=== PATIENT | female | born 1985 | race Caucasian/White ===

== ENCOUNTER 2018-06-24 17:26 | Emergency (ER) | payer BC, OTHER ==
[2018-06-24] MEDS ORDERED: Pantoprazole IV* 40 MG IV ONE (18:31)
--- NOTE | 2018-06-24 18:38 | ED ---
GI/ HPI - HPI Summary HPI Summary: 32 year old female presents with epigastric pain for the past couple days. She states it feels like a burning sensation. It is located in the center of her abd and radiates to the back. She denies any chest pressures or shortness of breath. No palpitations. No cough. No recent illness. She admits to nausea but no vomiting. She says worse with food. She states that is is better when she is sitting forward. No diarrhea or constipation. No blood in her stool or dark tarry stool. No urinary symptoms. no abnormal vaginal discharge. Never had this before. Denies any previous abd surgeries. Has no medical conditions. - History of Current Complaint Chief Complaint: EDAbdPain Time Seen by Provider: 06/24/18 18:25 Stated Complaint: HEARTBURN X3 DAYS Pain Intensity: 6 - Allergy/Home Medications Allergies/Adverse Reactions: Allergies Allergy/AdvReac Type Severity Reaction Status Date / Time clarithromycin [From Biaxin] Allergy Hives Verified 06/24/18 17:32 Home Medications: Home Medications Eth Estradiol/Drospirenone(NF) [Gianvi (NF)] 1 tab PO DAILY 06/24/18 [History Confirmed 06/24/18] PMH/Surg Hx/FS Hx/Imm Hx Endocrine/Hematology History: Denies: Hx Anticoagulant Therapy Cardiovascular History: Denies: Hx Myocardial Infarction Infectious Disease History: No Infectious Disease History: Denies: Traveled Outside the [place] in Last 30 Days - Family History Known Family History: Positive: Non-Contributory - Social History Alcohol Use: None Substance Use Type: Reports: None Smoking Status (MU): Never Smoked Tobacco Review of Systems Negative: Fever Negative: Chest Pain Negative: Shortness Of Breath Positive: Abdominal Pain, Nausea. Negative: Vomiting, Diarrhea All Other Systems Reviewed And Are Negative: Yes Physical Exam Triage Information Reviewed: Yes Vital Signs On Initial Exam: Initial Vitals Temp Pulse Resp BP Pulse Ox 98.7 F 83 20 133/88 100 06/24/18 17:29 06/24/18 17:29 06/24/18 17:29 06/24/18 17:29 06/24/18 17:29 Vital Signs Reviewed: Yes Appearance: Positive: Well-Appearing Skin: Positive: Warm, Dry Head/Face: Positive: Normal Head/Face Inspection Eyes: Positive: Normal, Conjunctiva Clear ENT: Positive: Pharynx normal Respiratory/Lung Sounds: Positive: Clear to Auscultation, Breath Sounds Present Cardiovascular: Positive: Normal, RRR Abdomen Description: Positive: Soft, Other: - tenderness epigastric. Negative: CVA Tenderness (R), CVA Tenderness (L) Bowel Sounds: Positive: Present Musculoskeletal: Positive: Normal Neurological: Positive: Normal Psychiatric: Positive: Normal AVPU Assessment: Alert Diagnostics - Vital Signs Vital Signs Temp Pulse Resp BP Pulse Ox 06/24/18 17:29 98.7 F 83 20 133/88 100 - Laboratory Result Diagrams: 06/24/18 18:50 06/24/18 18:50 Lab Statement: Any lab studies that have been ordered have been reviewed, and results considered in the medical decision making process. - Ultrasound No standard instances Ultrasound Interpretation Completed By: Radiologist Summary of Ultrasound Findings: IMPRESSION: Cholelithiasis without cholecystitis. Re-Evaluation - Re-Evaluation First Eval Re-Evaluation Time: 19:31 Change: Unchanged Comment: no change with protonix Second Eval Re-Evaluation Time: 20:56 Change: Improved Comment: pain improved Third Eval Re-Evaluation Time: 21:29 Change: Improved Comment: pain resolved GIGU Course/Dx - Course Course Of Treatment: 32 year old female presents with epigastric pain for the past couple days. She states it feels like a burning sensation. It is located in the center of her abd and radiates to the back. She denies any chest pressures or shortness of breath. No palpitations. No cough. No recent illness. She admits to nausea but no vomiting. She says worse with food. She states that is is better when she is sitting forward. did not eat anything different. no one else is sick. No diarrhea or constipation. No blood in her stool or dark tarry stool. No urinary symptoms. no abnormal vaginal discharge. Never had this before. Denies any previous abd surgeries. Has no medical conditions. on exam tenderness epigastric. neg velazquez. wbc normal. crp normal. d-dimer normal. lfts normal. gave protonix with no improvement. gave morphine and zofran and sx resolved. gallbaldder u/s shows cholelithasis without cholecystitis. as is pain free now and no elevated wbc count or lft will send home to follow up with surgery. gave pain and nausea medication. patient understand and agrees with plan. - Diagnoses Differential Diagnoses - Female: Gall Bladder Disease, Gastritis, Urinary Tract Infection Provider Diagnoses: Cholelithiasis Discharge - Sign-Out/Discharge Documenting (check all that apply): Patient Departure - Discharge Plan Condition: Good Disposition: HOME Prescriptions: Ondansetron TAB* [Zofran 4 MG Tab*] 4 mg PO Q6H PRN #16 tab PRN Reason: Nausea oxyCODONE/Acetamin 5/325 MG* [Percocet 5/325 TAB*] 1 tab PO Q6H PRN #16 tab MDD 4 PRN Reason: Pain Patient Education Materials: Gallstones (ED) Referrals: Filippo Persaud MD [Primary Care Provider] - Terence Estrada MD [Medical Doctor] - Additional Instructions: Take Tylenol or ibuprofen every 6 hours as needed for pain, take Percocet every 6 hours for break through pain as needed Take Zofran every 6 hours as needed for nausea Avoid fatty foods Follow up with surgery Return to ED if develop fever, persistent vomiting, or any new or worsening symptoms - Billing Disposition and Condition Condition: GOOD Disposition: Home
[2018-06-24 19:01] LABS: ABS Basophils 0 10^3/ul (0-0.2); ABS Eosinophils 0.1 10^3/ul (0-0.6); ABS Lymphocytes 3.1 10^3/ul (1.0-4.8); ABS Monocytes 0.5 10^3/ul (0-0.8); ABS Neutrophils 4.5 10^3/ul (1.5-7.7); ABS Nucleated RBC 0 10^3/ul; Hematocrit 39 % (35-47); Hemoglobin 13.2 g/dl (12.0-16.0); Lymphocyte % 38.1 %; Mean Corpuscular HGB Conc 34 g/dl (31-36); Mean Corpuscular Hemoglobin 30 pg (27-31); Mean Corpuscular Volume 88 fL (80-97); Mean Platelet Volume 7.7 fL (7.4-10.4); Nucleated Red Blood Cells % 0; Platelet Count 257 10^3/ul (150-450); Red Blood Count 4.44 10^6/ul (4.00-5.40); Red Cell Distribution Width 13 % (10.5-15); White Blood Count 8.1 10^3/ul (3.5-10.8)
[2018-06-24 19:19] LABS: ALT 16 U/L (7-52); AST 16 U/L (13-39); Albumin 3.9 g/dL (3.2-5.2); Albumin/Globulin Ratio 1.2 (1-3); Alkaline Phosphatase 38 U/L (34-104); Anion Gap 7 mmol/L (2-11); Blood Urea Nitrogen 17 mg/dL (6-24); C Reactive Protein 2.94 mg/L (<8.01); CO2 Carbon Dioxide 27 mmol/L (22-32); Calcium 8.9 mg/dL (8.6-10.3); Chloride 103 mmol/L (101-111); Globulin 3.2 g/dL (2-4); Glucose 116 mg/dL (70-100); Potassium 3.8 mmol/L (3.5-5.0); Sodium 137 mmol/L (135-145); Total Protein 7.1 g/dL (6.4-8.9)
[2018-06-24 19:25] LABS: HCG Pregnancy < 0.60 mIU/mL
[2018-06-24] MEDS ORDERED: Morphine VIAL* 4 MG/ML VIAL (1 ml vial) IV ONE ×2 (19:31→20:55)
[2018-06-24] MEDS ORDERED: Ondansetron INJ* 2 MG/ML VIAL IV ONE (19:40)
[2018-06-24 20:59] LABS: Urine Appearance Clear; Urine Bilirubin Negative (Negative); Urine Blood Negative (Negative); Urine Color Yellow; Urine Glucose Negative (Negative); Urine Ketones Trace (Negative); Urine Nitrite Negative (Negative); Urine Protein Negative (Negative); Urine Urobilinogen Negative (Negative)
[2018-06-24 21:42] VITALS: BP 138/79
== END 2018-06-24 21:43 | disposition home or self-care (01) ==
LOC: ED 17:26
DX: K80.20 Calculus of gallbladder without cholecystitis without obstruction (principal); R10.13 Epigastric pain
CPT/HCPCS: 36415; 76705; 80053; 81003; 83690; 84702; 85025; 85379; 86140; 96374; 96375; 99283; J2270; J2405

== ENCOUNTER 2018-07-11 13:12 | Day surgery (SDC) | payer BC, OTHER ==
[~2018-07-11 13:12] MED LIST: Buffered Lidocaine 1% SYRIN* 1 ML/SYRINGE INTRADERM ONE; Dexamethasone TAB* 4 MG PO ONE; DiMENhydriNATE IV* 50 MG/ML VIAL IV PUSH PRN; Famotidine IV* 10 MG/ML 2 ML (20 mg) IV ONE; Lactated Ringers 1000 ML Bag* 1,000 ML IV SCH; Morphine VIAL* 4 MG/ML VIAL (1 ml vial) IV PRN; Naloxone* 0.4 MG/ML 1 ML VIAL IV PRN; Ondansetron INJ* 2 MG/ML VIAL ONE; PROCHLORPERAZINE INJ 5 MG/ML 2 ML VIAL IV PRN; Scopolamine 1.5 mg* PATCH TRANSDERM PRN; fentaNYL* 50 MCG/ML 2 ML VIAL (100 MCG VIAL) IV PRN; oxyCODONE/Acetamin 5/325 MG* TAB PO PRN
[2018-07-11] MEDS ORDERED: Atracurium* 10 MG/ML 10 ML VIAL ONE (13:20)
[2018-07-11] MEDS ORDERED: KETAMINE HCL* 50 MG/ML 10 ML VIAL ONE (13:20)
[2018-07-11] MEDS ORDERED: Midazolam* 1 MG/ML 5 ML VIAL (5 MG) ONE (13:20)
[2018-07-11] MEDS ORDERED: fentaNYL* 50 MCG/ML 2 ML VIAL (100 MCG VIAL) ONE (13:20)
[2018-07-11] MEDS ORDERED: Dexamethasone TAB* 4 MG ONE (13:47)
[2018-07-11] MEDS ORDERED: Famotidine IV* 10 MG/ML 2 ML (20 mg) ONE (13:47)
[2018-07-11] MEDS ORDERED: Ondansetron ODT TAB* 4 MG ONE (13:47)
[2018-07-11] MEDS ORDERED: ceFAZolin 2 GM PREMIX in ORs 2 GM/50 ML BAG IVPB ONE (13:48)
[2018-07-11] MEDS ORDERED: Buffered Lidocaine 1% SYRIN* 1 ML/SYRINGE ONE (13:48)
[2018-07-11] MEDS ORDERED: Bupivacaine 0.25% W/EPI* 10 ML SDV ONE (14:49)
[2018-07-11] MEDS ORDERED: Glycopyrrolate IV* 0.2 MG/ML 1 ML VIAL ONE (15:24)
[2018-07-11] MEDS ORDERED: PROCHLORPERAZINE INJ 5 MG/ML 2 ML VIAL ONE (15:24)
[2018-07-11] MEDS ORDERED: Ketorolac INJ* 30 MG/ML 1 ML VIAL ONE (15:24)
[2018-07-11] MEDS ORDERED: Propofol* 10 MG/ML 20 ML BTL ONE (15:24)
[2018-07-11] MEDS ORDERED: Lidocaine 2% PF * 5 ML VIAL ONE (15:24)
[2018-07-11] MEDS ORDERED: Morphine VIAL* 10 MG/ML 1 ML VIAL ONE (15:25)
--- NOTE | 2018-07-11 16:18 | BRIEFOPN ---
Brief Operative Note - Surgery Procedures: OPERATIVE REPORT PRE-OP: Cholelithiasis and right upper quadrant abdominal pain POST-OP: Same PROCEDURE: Laparoscopic cholecystectomy SURGEON: MD Natalie ANESTHESIA:Local with General, [place] ASST:DENA Moreland IVF:1 liter of crystalloid EBL:min SPECIMEN:Gallbladder DRAIN: none WOUND CLASS:2 COMPLICATIONS: none TO PACU
[2018-07-11 19:17] VITALS: BP 123/78
--- NOTE | 2018-07-12 01:52 | OP ---
DATE OF OPERATION: 07/11/18 - [facility] DATE OF : 83 SURGEON: Terence Estrada MD SENIOR TRAINING SPECIALIST: DENA Damico ANESTHESIOLOGIST: Dr. Agudelo. ANESTHESIA: General with local. PRE-OP DIAGNOSES: Cholelithiasis and right upper quadrant abdominal pain. POST-OP DIAGNOSES: Cholelithiasis and right upper quadrant abdominal pain. OPERATIVE PROCEDURE: Laparoscopic cholecystectomy. WOUND CLASSIFICATION: 2. DRAINS: None. COMPLICATIONS: None. SPECIMENS: Gallbladder with contained gallstones. DESCRIPTION OF PROCEDURE: Written informed consent was obtained, the abdomen was marked with indelible ink and preoperative antibiotics were administered. The patient was taken to the operating room and placed in a supine position. Sequential compression devices and a warming blanket were applied. General anesthesia was administered and the abdomen was prepped and draped in the usual sterile fashion. Time-out verification was completed. Initially, a small transverse incision was made just below the umbilicus in the midline, the peritoneal cavity was entered under direct vision. A 12 mm blunt port was inserted and the abdomen was insufflated to 15 mmHg. Under direct vision, an 11 mm epigastric port was placed and two 5-mm ports were placed in the right side of the abdominal wall. Liver was identified and it appeared to be unremarkable. The gallbladder was without evidence of acute or chronic inflammation and there were some omental adhesions to it and these were taken down sharply. With care, the peritoneum along the medial and lateral aspects of the gallbladder at the infundibular area was divided and swept downwards with dissection to identify the cystic duct and artery as they entered the gallbladder. A considerable portion of the lower portion of the gallbladder was taken down off the liver bed using a critical view technique to assure myself of these 2 structures as they entered the gallbladder. The cystic duct was of expected caliber, i.e. not dilated and this was triply clipped and divided. The cystic artery was then doubly clipped and divided. The gallbladder was then removed from the liver bed using cautery and placed in an EndoCatch bag and brought out through the umbilical incision. Hemostasis was assured and the right upper quadrant was irrigated. All ports were removed under direct vision of the camera. There was no abdominal wall bleeding. The umbilical fascia was closed with interrupted 0 Vicryl suture. The skin at all 4 incisions was closed with a subcuticular 4-0 Vicryl suture. Steri-Strips were applied. The patient tolerated the procedure well, was taken to the recovery room in stable condition. [id number]/[facility] #: [id number] DANYELL
[2018-07-14] MEDS ORDERED: Scopolamine PATCH Remove* 1 NOTE MISC PATCH OFF ONE (05:57)
== END 2018-07-11 19:19 | disposition home or self-care (01) ==
LOC: OR 13:12
PROVIDERS: ATTEND Surgery
DX: K80.10 Calculus of gallbladder with chronic cholecystitis without obstruction (principal)
CPT/HCPCS: 81025; 88304; A9270-GY; J0690; J0780; J1885; J2250; J2270; J2704; J3010; J8540